=== PATIENT | male | born 2000 | race Caucasian/White ===

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

== ENCOUNTER 2019-04-02 00:28 | Emergency (ER) | payer OTHER ==
[~2019-04-02] VITALS: Ht 180.3 cm; Wt 74.8 kg
[2019-04-02 00:30] VITALS: Ht 180.3 cm; Wt 74.8 kg
[2019-04-02 03:08] VITALS: BP 148/103
== END 2019-04-02 03:46 | disposition home or self-care (01) ==
LOC: ED 00:28
DX: S01.512A Laceration without foreign body of oral cavity, initial encounter (principal); J45.909 Unspecified asthma, uncomplicated; W01.0XXA Fall on same level from slipping, tripping and stumbling without subsequent striking against object, initial encounter; Y93.89 Activity, other specified; Y92.89 Other specified places as the place of occurrence of the external cause; Y99.8 Other external cause status
CPT/HCPCS: J2001

== ENCOUNTER 2019-08-24 21:06 | Emergency (ER) | payer OTHER ==
[~2019-08-24] VITALS: Ht 180.3 cm; Wt 74.8 kg
[2019-08-24 21:15] VITALS: BP 158/90; Ht 180.3 cm; Wt 74.8 kg
== END 2019-08-24 21:23 | disposition left against medical advice (07) ==
LOC: ED 21:06
DX: S09.90XA Unspecified injury of head, initial encounter (principal); J45.909 Unspecified asthma, uncomplicated; Y04.8XXA Assault by other bodily force, initial encounter; Y93.89 Activity, other specified; Y92.89 Other specified places as the place of occurrence of the external cause; Y99.8 Other external cause status

== ENCOUNTER 2019-09-25 00:37 | Emergency (ER) | payer OTHER ==
[~2019-09-25] VITALS: Ht 180.3 cm; Wt 79.4 kg
[2019-09-25 00:46] VITALS: Ht 180.3 cm; Wt 79.4 kg
[2019-09-25 01:14] VITALS: BP 140/96
== END 2019-09-25 01:14 | disposition home or self-care (01) ==
LOC: ED 00:37
DX: N48.29 Other inflammatory disorders of penis (principal); J45.909 Unspecified asthma, uncomplicated; Z11.3 Encounter for screening for infections with a predominantly sexual mode of transmission

== ENCOUNTER 2019-12-19 01:52 | Emergency (ER) | payer OTHER ==
[~2019-12-19] VITALS: Ht 180.3 cm; Wt 61.2 kg
[2019-12-19 02:25] VITALS: BP 152/102; Ht 180.3 cm; Wt 61.2 kg
== END 2019-12-19 03:39 | disposition left against medical advice (07) ==
LOC: ED 01:52
DX: Z53.21 Procedure and treatment not carried out due to patient leaving prior to being seen by health care provider (principal)
CPT/HCPCS: Q0092